=== PATIENT | female | born 1980 | race Caucasian/White ===

== ENCOUNTER 2017-11-27 11:42 | Inpatient (IN) ==
[2017-11-27] MEDS ORDERED: MAGNESIUM SULF RIDER 100 ML IV ONE ×2 (12:50→13:15)
[2017-11-27] MEDS: LACTATED RINGERS 1,000 ML IV SCH (13:05)
[2017-11-27] MEDS ORDERED: AMPICILLIN/SULBACTAM 1,500 MG VIAL IM SCH (13:30)
[2017-11-27 13:43] LABS: Basophils % 0.3 % (0.0-0.8); Eosinophils # 0.7 10*3/uL (0.0-0.87); Eosinophils % 4.9 % (0.00-10.9); Hematocrit 27.4 VOL% (35.7-47.0); Hemoglobin 9.5 GM/DL (12.0-16.0); Immature Granulocytes % 1.5 %; Immature Granulocytes Absolute 0.23 #; Lymphocytes # 2.4 10*3/uL (1.4-4.0); Lymphocytes % 15.9 % (21.3-54.2); Mean Corpuscular HGB Conc 34.7 GM/DL (32-36); Mean Corpuscular Hemoglobin 30 PG (27-34); Mean Corpuscular Volume 85.6 FL (87-102); Mean Platelet Volume 10.3 FL (9.6-12.0); Monocytes # 0.5 10*3/uL (0.11-0.8); Monocytes % 3.2 % (1.7-12.7); Neutrophils # 11.2 10*3/uL (1.4-7.4); Neutrophils % 74.2 % (38.7-73.9); Platelet Count 358 T/CUMM (130-400); Red Cell Distribution Width 14.4 % (9.3-17.3); White Blood Count 15.1 T/CUMM (4-12)
[2017-11-27] MEDS: MAGNESIUM SULF DRIP 40 GM/1,000 ML ML IV SCH (13:44)
[2017-11-27] MEDS: AMPICILLIN/SULBACTAM 1,500 MG in SODIUM CHLORIDE 0.9% 100 ML IV SCH ×3 (14:30→23:40)
[2017-11-27] MEDS ORDERED: SODIUM CHLORIDE 0.9% 100 ML IV ONE (14:35)
[2017-11-27] MEDS: BETAMETH SODIUM PHOS/ACETATE 30 MG/5 ML VIAL IM SCH (15:22)
[2017-11-27] MEDS: ALUMINUM/MAGNES/SIMETH MAX STR 30 ML UDCUP PO PRN (19:50)
[2017-11-27] MEDS: AMOXICILLIN/CLAV 875 MG TABLET PO SCH (22:30)
[2017-11-28] MEDS: LACTATED RINGERS 1,000 ML IV SCH ×3 (00:18→13:30)
[2017-11-28 02:01] LABS: Basophils % 0.2 % (0.0-0.8); Eosinophils % 0.2 % (0.00-10.9); Hematocrit 27.1 VOL% (35.7-47.0); Immature Granulocytes % 1.8 %; Immature Granulocytes Absolute 0.28 #; Lymphocytes # 2.2 10*3/uL (1.4-4.0); Lymphocytes % 14.2 % (21.3-54.2); Mean Corpuscular HGB Conc 33.2 GM/DL (32-36); Mean Corpuscular Hemoglobin 29 PG (27-34); Mean Platelet Volume 10.3 FL (9.6-12.0); Monocytes # 0.3 10*3/uL (0.11-0.8); Neutrophils # 12.4 10*3/uL (1.4-7.4); Neutrophils % 81.6 % (38.7-73.9); Platelet Count 332 T/CUMM (130-400); Red Blood Count 3.08 MC/CUMM (3.8-5.5); Red Cell Distribution Width 14.5 % (9.3-17.3); White Blood Count 15.2 T/CUMM (4-12)
[2017-11-28] MEDS: AMPICILLIN/SULBACTAM 1,500 MG in SODIUM CHLORIDE 0.9% 100 ML IV SCH ×3 (02:30→12:40)
[2017-11-28] MEDS: ALUMINUM/MAGNES/SIMETH MAX STR 30 ML UDCUP PO PRN ×3 (03:16→17:10)
[2017-11-28] MEDS: BETAMETH SODIUM PHOS/ACETATE 30 MG/5 ML VIAL IM SCH ×2 (03:33→17:05)
[2017-11-28] MEDS: ONDANSETRON 4 MG TABLET PO SCH ×3 (08:31→23:42)
[2017-11-28] MEDS: MAGNESIUM SULF DRIP 40 GM/1,000 ML ML IV SCH ×2 (08:51→17:06)
[2017-11-28] MEDS: AMOXICILLIN/CLAV 875 MG TABLET PO SCH (10:34)
[2017-11-28] MEDS: NIFEdipine 10 MG CAPSULE PO SCH ×2 (12:30→18:46)
[2017-11-28] MEDS ORDERED: miSOPROStol 200 MCG TABLET ONE (15:58)
[2017-11-28] MEDS ORDERED: LIDOCAINE 1% 50 ML VIAL ONE (15:58)
[2017-11-28] MEDS ORDERED: CARBOPROST TROMETHAMINE 250 MCG/ML AMP IM ONE (15:58)
[2017-11-29] MEDS: NIFEdipine 10 MG CAPSULE PO SCH ×5 (00:04→23:54)
[2017-11-29] MEDS: LACTATED RINGERS 1,000 ML IV SCH (01:58)
[2017-11-29 03:38] LABS: Basophils % 0.1 % (0.0-0.8); Eosinophils % 0.1 % (0.00-10.9); Hematocrit 24.7 VOL% (35.7-47.0); Hemoglobin 8.1 GM/DL (12.0-16.0); Immature Granulocytes % 2.4 %; Lymphocytes # 2.7 10*3/uL (1.4-4.0); Lymphocytes % 16.4 % (21.3-54.2); Mean Corpuscular HGB Conc 32.8 GM/DL (32-36); Mean Corpuscular Hemoglobin 30 PG (27-34); Mean Corpuscular Volume 90.5 FL (87-102); Mean Platelet Volume 10.2 FL (9.6-12.0); Monocytes # 0.9 10*3/uL (0.11-0.8); Monocytes % 5.4 % (1.7-12.7); Neutrophils # 12.4 10*3/uL (1.4-7.4); Neutrophils % 75.6 % (38.7-73.9); Platelet Count 304 T/CUMM (130-400); Red Blood Count 2.73 MC/CUMM (3.8-5.5); Red Cell Distribution Width 14.8 % (9.3-17.3); White Blood Count 16.3 T/CUMM (4-12)
[2017-11-29] MEDS: AMOXICILLIN/CLAV 875 MG TABLET PO SCH ×2 (10:27→22:26)
[2017-11-29] MEDS: ALUMINUM/MAGNES/SIMETH MAX STR 30 ML UDCUP PO PRN (11:53)
[2017-11-30 05:37] LABS: Basophils % 0.2 % (0.0-0.8); Eosinophils # 0.1 10*3/uL (0.0-0.87); Eosinophils % 0.9 % (0.00-10.9); Hematocrit 24.6 VOL% (35.7-47.0); Hemoglobin 8.3 GM/DL (12.0-16.0); Immature Granulocytes % 4.4 %; Immature Granulocytes Absolute 0.59 #; Lymphocytes # 3.6 10*3/uL (1.4-4.0); Lymphocytes % 27.1 % (21.3-54.2); Mean Corpuscular HGB Conc 33.7 GM/DL (32-36); Mean Corpuscular Hemoglobin 30 PG (27-34); Mean Corpuscular Volume 87.5 FL (87-102); Mean Platelet Volume 10.3 FL (9.6-12.0); Monocytes # 0.7 10*3/uL (0.11-0.8); Monocytes % 5.5 % (1.7-12.7); Neutrophils # 8.3 10*3/uL (1.4-7.4); Neutrophils % 61.9 % (38.7-73.9); Platelet Count 319 T/CUMM (130-400); Red Blood Count 2.81 MC/CUMM (3.8-5.5); Red Cell Distribution Width 14.6 % (9.3-17.3); White Blood Count 13.4 T/CUMM (4-12)
[2017-11-30] MEDS: NIFEdipine 10 MG CAPSULE PO SCH ×4 (05:50→23:47)
[2017-11-30 06:13] LABS: Lymphocytes 13 % (20-55); Macrocytosis 1+; Myelocytes 1 %; Platelet Estimate Adequate; Segmented Neutrophils 80 % (50-85); Total Cells Counted 100
[2017-11-30] MEDS: MULTIVITAMIN (PRENATAL) TABLET PO SCH (09:36)
[2017-11-30] MEDS: AMOXICILLIN/CLAV 875 MG TABLET PO SCH ×2 (09:36→23:47)
[2017-11-30] MEDS: ALUMINUM/MAGNES/SIMETH MAX STR 30 ML UDCUP PO PRN (16:50)
[2017-12-01] MEDS: NIFEdipine 10 MG CAPSULE PO SCH ×4 (06:06→23:48)
[2017-12-01] MEDS: MULTIVITAMIN (PRENATAL) TABLET PO SCH (10:07)
[2017-12-01] MEDS: AMOXICILLIN/CLAV 875 MG TABLET PO SCH ×2 (10:07→21:56)
[2017-12-01] MEDS: DOCUSATE SODIUM 100 MG CAPSULE PO SCH (20:54)
[2017-12-02] MEDS: NIFEdipine 10 MG CAPSULE PO SCH ×2 (06:01→12:06)
[2017-12-02 08:01] LABS: Basophils % 0.2 % (0.0-0.8); Eosinophils # 0.1 10*3/uL (0.0-0.87); Eosinophils % 0.7 % (0.00-10.9); Hematocrit 27.2 VOL% (35.7-47.0); Hemoglobin 9.5 GM/DL (12.0-16.0); Immature Granulocytes % 2.4 %; Immature Granulocytes Absolute 0.42 #; Lymphocytes # 2.9 10*3/uL (1.4-4.0); Lymphocytes % 16.7 % (21.3-54.2); Mean Corpuscular HGB Conc 34.9 GM/DL (32-36); Mean Corpuscular Hemoglobin 30 PG (27-34); Mean Corpuscular Volume 85.8 FL (87-102); Mean Platelet Volume 10.6 FL (9.6-12.0); Monocytes # 0.7 10*3/uL (0.11-0.8); Monocytes % 4.1 % (1.7-12.7); NRBC # 0.02 10*3/uL; Neutrophils # 13.3 10*3/uL (1.4-7.4); Neutrophils % 75.9 % (38.7-73.9); Platelet Count 373 T/CUMM (130-400); Red Blood Count 3.17 MC/CUMM (3.8-5.5); Red Cell Distribution Width 14.4 % (9.3-17.3); White Blood Count 17.5 T/CUMM (4-12)
[2017-12-02] MEDS: AMOXICILLIN/CLAV 875 MG TABLET PO SCH (09:59)
[2017-12-02] MEDS: DOCUSATE SODIUM 100 MG CAPSULE PO SCH (10:00)
[2017-12-02] MEDS: MULTIVITAMIN (PRENATAL) TABLET PO SCH (10:00)
[2017-12-02] MEDS ORDERED: AMPICILLIN INJ 2,000 MG in SODIUM CHLORIDE 0.9% 100 ML IV SCH (14:30)
[2017-12-02] MEDS ORDERED: ONDANSETRON 4 MG/2 ML VIAL IV ONE (14:30)
[2017-12-02] MEDS ORDERED: fentaNYL 2 MCG/ROPIV 0.2% EPID 150 ML EPIDURAL SCH (14:30)
[2017-12-02] MEDS ORDERED: diphenhydrAMINE 50 MG/1 ML VIAL IV PRN (14:30)
[2017-12-02] MEDS ORDERED: FAMOTIDINE 20 MG/2 ML VIAL IV ONE (14:30)
[2017-12-02] MEDS ORDERED: LACTATED RINGERS 500 ML IV ONE (14:30)
[2017-12-02] MEDS ORDERED: ePHEDrine 50 MG/ML AMP IV PRN (14:30)
[2017-12-02] MEDS ORDERED: OXYTOCIN/LR 20 UNIT/1,000 ML BAG IV SCH (14:30)
[2017-12-02] MEDS ORDERED: LACTATED RINGERS 1,000 ML IV ONE (14:30)
[2017-12-02] MEDS ORDERED: PROMETHAZINE 25 MG/1 ML VIAL IM ONE (14:30)
[2017-12-02] MEDS ORDERED: hydrOXYzine HCL 25 MG/1 ML VIAL IM PRN (14:30)
[2017-12-02] MEDS ORDERED: CITRIC ACID/SODIUM CITRATE 30 ML UDCUP PO ONE (14:30)
[2017-12-02] MEDS ORDERED: LACTATED RINGERS 1,000 ML IV SCH (14:30)
[2017-12-02 17:40] LABS: Apearance,Urine CLEAR (Clear); Bacteria,Urine Occasional /HPF (Few); Bilirubin,Urine Negative (Negative); Blood, Urine Negative (Negative); Glucose,Urine (UA) Negative (Negative); Ketones,Urine Negative (Negative); Mucus,Urine Occasional /LPF (Occasional); Nitrite,Urine Negative (Negative); Protein,Urine Negative; RBC,Urine 1 /HPF (0-4); Squamous Epithelial Cell,Urine Occasional /HPF (0-10); Urine Color Yellow (Yellow); Urine Specific Gravity 1.008 (1.001-1.035); Urine Urobilinogen < 2.0 EU/DL (0.2-1.0); WBC,Urine 2 /HPF (0-6)
[2017-12-02] MEDS ORDERED: MEASLES/MUMPS/RUBELLA VACCINE 0.5 ML VIAL SUBCUT ONE (21:07)
[2017-12-02] MEDS ORDERED: ACETAMINOPHEN 325 MG TABLET PO PRN (21:07)
[2017-12-02] MEDS ORDERED: ONDANSETRON 4 MG/2 ML VIAL IV PRN (21:07)
[2017-12-02] MEDS ORDERED: DIPH/TET/ACEL PERT BOOSTER VACCINE 0.5 ML VIAL IM ONE (21:07)
[2017-12-02] MEDS ORDERED: LANOLIN 50% CREAM 0.3 OZ TUBE TOP PRN (21:07)
[2017-12-02] MEDS ORDERED: oxyCODONE/ACETAMINOPHEN 5-325 MG TABLET PO PRN ×2 (21:07)
[2017-12-02] MEDS ORDERED: OXYTOCIN/LR 20 UNIT/1,000 ML BAG IV ONE (21:07)
[2017-12-02] MEDS ORDERED: RHO(D) IMMUNE GLOBULIN 300 MCG SYRINGE IM ONE (21:07)
[2017-12-02] MEDS ORDERED: HYDROCORTISONE 2.5% RECTAL CREAM 30 GM TUBE TOP PRN (21:07)
[2017-12-02] MEDS ORDERED: BENZOCAINE 20%/MENTHOL 0.5% SPRAY 56 GM CAN TOP PRN (21:07)
[2017-12-02] MEDS ORDERED: WITCH HAZEL PADS 100/JAR TOP PRN (21:07)
[2017-12-02] MEDS ORDERED: IBUPROFEN 800 MG TABLET PO PRN (21:07)
[2017-12-02] MEDS ORDERED: BISACODYL 10 MG SUPP RECTAL PRN (21:07)
[2017-12-03 04:14] LABS: Basophils # 0.1 10*3/uL (0.0-0.2); Basophils % 0.2 % (0.0-0.8); Eosinophils # 0.1 10*3/uL (0.0-0.87); Eosinophils % 0.4 % (0.00-10.9); Hematocrit 23.7 VOL% (35.7-47.0); Hemoglobin 7.8 GM/DL (12.0-16.0); Immature Granulocytes % 1.6 %; Immature Granulocytes Absolute 0.36 #; Lymphocytes % 13.4 % (21.3-54.2); Mean Corpuscular HGB Conc 32.9 GM/DL (32-36); Mean Corpuscular Hemoglobin 29 PG (27-34); Mean Corpuscular Volume 89.4 FL (87-102); Monocytes # 0.8 10*3/uL (0.11-0.8); Monocytes % 3.7 % (1.7-12.7); Neutrophils # 18.1 10*3/uL (1.4-7.4); Neutrophils % 80.7 % (38.7-73.9); Platelet Count 327 T/CUMM (130-400); Red Blood Count 2.65 MC/CUMM (3.8-5.5); Red Cell Distribution Width 14.4 % (9.3-17.3); White Blood Count 22.4 T/CUMM (4-12)
[2017-12-03] MEDS ORDERED: ACETAMINOPHEN/CODEINE 300-30 MG TABLET PO PRN (04:33)
[2017-12-03 05:00] LABS: Eosinophils 1 % (0-10); Lymphocytes 8 % (20-55); Segmented Neutrophils 89 % (50-85); Total Cells Counted 100
[2017-12-03 05:01] LABS: Giant Platelets Few; Hypochromasia 1+; Platelet Estimate Adequate
[2017-12-03] MEDS: MULTIVITAMIN (PRENATAL) TABLET PO SCH (08:10)
[2017-12-03] MEDS: DOCUSATE SODIUM 100 MG CAPSULE PO SCH (08:10)
[2017-12-03] MEDS ORDERED: DOCUSATE SODIUM 100 MG CAPSULE PO SCH (09:00)
[2017-12-04] MEDS: DOCUSATE SODIUM 100 MG CAPSULE PO SCH (08:17)
[2017-12-04] MEDS: MULTIVITAMIN (PRENATAL) TABLET PO SCH (08:17)
[2017-12-04 08:56] VITALS: BP 123/76
== END 2017-12-04 12:00 | disposition home or self-care (01) | DRG 560 ==
LOC: N.LDOUT 11:42 → N.LD 11:43 → UNDODEPREF 11-30 13:54 → N.OB 11-30 14:42 → N.LD 12-02 13:43 → N.OB 12-02 22:45
PROVIDERS: ADMIT Obstetrics & Gynecology; ATTEND Obstetrics & Gynecology

== ENCOUNTER 2021-10-02 10:42 | Observation (INO) ==
[2021-10-02] MEDS ORDERED: ASPIRIN 325 MG TABLET PO STA (11:43)
[2021-10-02 11:52] LABS: Basophils # 0.1 10*3/uL (0.0-0.2); Basophils % 0.4 % (0.0-0.8); Eosinophils # 0.1 10*3/uL (0.0-0.87); Eosinophils % 0.8 % (0.00-10.9); Hematocrit 36.2 VOL% (35.7-47.0); Hemoglobin 11.9 GM/DL (12.0-16.0); Immature Granulocytes % 0.6 %; Immature Granulocytes Absolute 0.09 #; Lymphocytes # 2.1 10*3/uL (1.4-4.0); Lymphocytes % 14.6 % (21.3-54.2); Mean Corpuscular HGB Conc 32.9 GM/DL (32-36); Mean Corpuscular Volume 82.1 FL (87-102); Monocytes % 4.4 % (1.7-12.7); Neutrophils % 79.2 % (38.7-73.9); Platelet Count 445 T/CUMM (130-400); Red Blood Count 4.41 MC/CUMM (3.8-5.5); Red Cell Distribution Width 14.6 % (9.3-17.3); White Blood Count 14.3 T/CUMM (4-12)
[2021-10-02] MEDS ORDERED: ONDANSETRON 4 MG/2 ML VIAL IV ONE (12:00)
[2021-10-02] MEDS ORDERED: KETOROLAC 30 MG/1 ML VIAL IV STA (12:02)
[2021-10-02 12:08] LABS: Albumin 3.7 G/DL (3.4-5.0); Bilirubin,Total 0.4 MG/DL (0.20-1.00); Calcium 8.3 MG/DL (8.5-10.1); Osmolality,Calculated 268.1 MOS/KG (273-304); Potassium 3.2 MMOL/L (3.5-5.1)
[2021-10-02] MEDS ORDERED: POTASSIUM CHLORIDE 20 MEQ TABLET PO ONE (13:47)
[2021-10-02] MEDS ORDERED: DEXTROSE 50% 25 GM/50 ML VIAL IV PRN (14:43)
[2021-10-02] MEDS ORDERED: NITROGLYCERIN SL 0.4 MG TABLET SL PRN (14:43)
[2021-10-02] MEDS ORDERED: ACETAMINOPHEN 325 MG TABLET PO PRN (14:43)
[2021-10-02] MEDS ORDERED: hydrOXYzine HCL 25 MG TABLET PO PRN (14:43)
[2021-10-02] MEDS ORDERED: GLUCAGON 1 MG VIAL IM PRN (14:43)
[2021-10-02] MEDS ORDERED: fentaNYL 25 MCG/HR PATCH TRANSDERM SCH (15:00)
[2021-10-02 16:51] LABS: Risk Ratio 11.04; Thyroid Stimulating Hormone 0.569 uIU/ml (0.358-3.74)
[2021-10-02] MEDS: LACTATED RINGERS 1,000 ML IV SCH (17:02)
[2021-10-02] MEDS: PREGABALIN 100 MG CAPSULE PO SCH ×2 (17:02→21:58)
[2021-10-02] MEDS: ENOXAPARIN 40 MG/0.4 ML SYRINGE SUBCUT SCH (17:02)
[2021-10-02] MEDS: METOPROLOL TARTRATE 25 MG TABLET PO SCH (21:58)
[2021-10-03] MEDS: LACTATED RINGERS 1,000 ML IV SCH ×3 (01:10→15:18)
[2021-10-03 04:27] LABS: Basophils # 0.1 10*3/uL (0.0-0.2); Basophils % 0.7 % (0.0-0.8); Eosinophils # 0.2 10*3/uL (0.0-0.87); Eosinophils % 1.6 % (0.00-10.9); Hematocrit 32.2 VOL% (35.7-47.0); Hemoglobin 10.6 GM/DL (12.0-16.0); Immature Granulocytes % 0.7 %; Immature Granulocytes Absolute 0.07 #; Lymphocytes % 19.3 % (21.3-54.2); Mean Corpuscular HGB Conc 32.9 GM/DL (32-36); Mean Corpuscular Volume 83.4 FL (87-102); Mean Platelet Volume 10.1 FL (9.6-12.0); Monocytes % 5.2 % (1.7-12.7); Neutrophils % 72.5 % (38.7-73.9); Platelet Count 402 T/CUMM (130-400); Red Blood Count 3.86 MC/CUMM (3.8-5.5); Red Cell Distribution Width 14.6 % (9.3-17.3); White Blood Count 10.4 T/CUMM (4-12)
[2021-10-03 04:52] LABS: Calcium 7.7 MG/DL (8.5-10.1); Potassium 3.3 MMOL/L (3.5-5.1)
[2021-10-03] MEDS: ONDANSETRON 4 MG/2 ML VIAL IV PRN ×2 (07:22→12:06)
[2021-10-03] MEDS ORDERED: POTASSIUM CHLORIDE 20 MEQ TABLET PO ONE ×2 (07:28→16:09)
[2021-10-03] MEDS ORDERED: FAMOTIDINE 20 MG TABLET PO SCH (09:00)
[2021-10-03] MEDS ORDERED: ASPIRIN CHEW 81 MG TABLET PO SCH (09:00)
[2021-10-03] MEDS: METOPROLOL TARTRATE 25 MG TABLET PO SCH (09:24)
[2021-10-03] MEDS: PREGABALIN 100 MG CAPSULE PO SCH ×2 (09:24→15:18)
[2021-10-03] MEDS ORDERED: REGADENOSON 0.4 MG/5 ML SYRINGE IV ONE (13:57)
[2021-10-03] MEDS: ENOXAPARIN 40 MG/0.4 ML SYRINGE SUBCUT SCH ×2 (15:18→15:29)
[2021-10-03 17:10] VITALS: BP 104/60
== END 2021-10-03 17:30 | disposition home or self-care (01) ==
LOC: N.ED 10:42 → N.EDINP 10:42 → N.TELES 14:24
PROVIDERS: ADMIT Internal Medicine; ATTEND Internal Medicine

== ENCOUNTER 2021-10-09 11:34 | Inpatient (IN) ==
[2021-10-09] MEDS ORDERED: PROMETHAZINE INJ 25 MG in SODIUM CHLORIDE 0.9% 50 ML IV STA (13:28)
[2021-10-09] MEDS ORDERED: SODIUM CHLORIDE 0.9% 1,000 ML IV STA (13:28)
[2021-10-09] MEDS ORDERED: PROMETHAZINE 25 MG/1 ML VIAL ONE (14:08)
[2021-10-09 14:15] LABS: Basophils # 0.1 10*3/uL (0.0-0.2); Basophils % 0.5 % (0.0-0.8); Eosinophils % 0.2 % (0.00-10.9); Hematocrit 40.3 VOL% (35.7-47.0); Hemoglobin 13.5 GM/DL (12.0-16.0); Immature Granulocytes % 1.3 %; Immature Granulocytes Absolute 0.24 #; Lymphocytes # 2.1 10*3/uL (1.4-4.0); Lymphocytes % 11.1 % (21.3-54.2); Mean Corpuscular HGB Conc 33.5 GM/DL (32-36); Mean Corpuscular Volume 81.6 FL (87-102); Mean Platelet Volume 10.2 FL (9.6-12.0); Monocytes % 5.1 % (1.7-12.7); Neutrophils % 81.8 % (38.7-73.9); Platelet Count 514 T/CUMM (130-400); Red Blood Count 4.94 MC/CUMM (3.8-5.5); Red Cell Distribution Width 14.6 % (9.3-17.3); White Blood Count 18.8 T/CUMM (4-12)
[2021-10-09 14:33] LABS: Alanine Aminotransferase 29 U/L (13-56); Albumin 3.8 G/DL (3.4-5.0); Alkaline Phosphatase 127 U/L (45-117); Aspartate Amino Transferase 17 U/L (0-37); Bilirubin,Total < 0.39 MG/DL (0.20-1.00); Blood Urea Nitrogen 16 MG/DL (7-18); Carbon Dioxide 21 MMOL/L (21-32); Estimated Glom Filtration Rate 123 ML/MIN; Glucose 112 MG/DL (74-106); Osmolality,Calculated 269.2 MOS/KG (273-304); Sodium 134 MMOL/L (136-145); Total Protein 8.4 G/DL (6.4-8.2)
[2021-10-09 15:59] LABS: Bilirubin,Urine Negative (Negative); Blood, Urine Negative (Negative); Glucose,Urine (UA) Negative (Negative); Ketones,Urine 80 mg/dL (Negative); Mucus,Urine Occasional /LPF (Occasional); Nitrite,Urine Negative (Negative); Protein,Urine 30 MG/DL; RBC,Urine 8 /HPF (0-4); Squamous Epithelial Cell,Urine Occasional /HPF (0-10); Urine Appearance CLEAR (Clear); Urine Color Yellow (Yellow); Urine Urobilinogen < 2.0 EU/DL (0.2-1.0)
[2021-10-09 16:01] LABS: Urine Specific Gravity 1.001 (1.001-1.035)
[2021-10-09] MEDS ORDERED: DEXTROSE 50% 25 GM/50 ML VIAL IV PRN (16:31)
[2021-10-09] MEDS ORDERED: ALBUTEROL/IPRATROPIUM 3 ML NEB RESP TX PRN (16:31)
[2021-10-09] MEDS ORDERED: ONDANSETRON 4 MG/2 ML VIAL IV PRN ×2 (16:31→19:35)
[2021-10-09] MEDS ORDERED: hydrALAZINE 20 MG/1 ML VIAL IV PRN (16:31)
[2021-10-09] MEDS ORDERED: ACETAMINOPHEN 325 MG TABLET PO PRN (16:31)
[2021-10-09] MEDS ORDERED: PROMETHAZINE 25 MG/1 ML VIAL IM PRN (16:31)
[2021-10-09] MEDS ORDERED: GLUCAGON 1 MG VIAL IM PRN (16:31)
[2021-10-09] MEDS ORDERED: POTASSIUM CHLORIDE RIDER 10 MEQ/100 ML PREMIX IV PRN (16:37)
[2021-10-09] MEDS: POTASSIUM CHLORIDE INJ 20 MEQ in SODIUM CHLORIDE 0.9% 1,000 ML IV SCH (17:24)
[2021-10-09] MEDS ORDERED: TEMAZEPAM 7.5 MG CAPSULE PO PRN (19:35)
[2021-10-09] MEDS ORDERED: MYLANTA/LIDO VISC 2:1 300 ML BOTTLE SWISH/SWAL PRN (19:35)
[2021-10-09] MEDS ORDERED: MAGNESIUM HYDROXIDE SUSP 30 ML UDCUP PO PRN (19:35)
[2021-10-09] MEDS ORDERED: LOPERAMIDE 2 MG CAPSULE PO PRN ×2 (19:35)
[2021-10-09] MEDS ORDERED: chlorproMAZINE INJ 25 MG in SODIUM CHLORIDE 0.9% 100 ML IV PRN (19:35)
[2021-10-09] MEDS ORDERED: diphenhydrAMINE CAP 25 MG CAPSULE PO PRN (19:35)
[2021-10-09] MEDS ORDERED: ALUMINUM/MAGNES/SIMETH MAX STR 30 ML UDCUP PO PRN (19:35)
[2021-10-09] MEDS ORDERED: LACTULOSE 20 GM/30 ML UDCUP PO PRN (19:35)
[2021-10-09] MEDS ORDERED: MYLANTA/LIDO VISC 2:1 300 ML BOTTLE SWISH/SPIT PRN (19:35)
[2021-10-09] MEDS ORDERED: traMADol 50 MG TABLET PO PRN (19:35)
[2021-10-09] MEDS ORDERED: ALPRAZolam 0.25 MG TABLET PO PRN (19:35)
[2021-10-09] MEDS ORDERED: guaiFENesin 200 MG/10 ML UDCUP PO PRN (19:35)
[2021-10-09] MEDS ORDERED: chlorproMAZINE INJ 50 MG in SODIUM CHLORIDE 0.9% 100 ML IV PRN (19:35)
[2021-10-09] MEDS: ENOXAPARIN 40 MG/0.4 ML SYRINGE SUBCUT SCH (20:26)
[2021-10-09] MEDS: PROMETHAZINE INJ 25 MG in SODIUM CHLORIDE 0.9% 50 ML IV PRN (20:53)
[2021-10-10] MEDS: PROMETHAZINE INJ 25 MG in SODIUM CHLORIDE 0.9% 50 ML IV PRN (04:20)
[2021-10-10 05:30] LABS: Basophils # 0.1 10*3/uL (0.0-0.2); Basophils % 0.6 % (0.0-0.8); Eosinophils # 0.1 10*3/uL (0.0-0.87); Hematocrit 34.4 VOL% (35.7-47.0); Hemoglobin 11.3 GM/DL (12.0-16.0); Immature Granulocytes % 1.4 %; Immature Granulocytes Absolute 0.18 #; Lymphocytes # 2.6 10*3/uL (1.4-4.0); Lymphocytes % 19.5 % (21.3-54.2); Mean Corpuscular HGB Conc 32.8 GM/DL (32-36); Mean Corpuscular Volume 83.1 FL (87-102); Mean Platelet Volume 10.6 FL (9.6-12.0); Monocytes % 6.7 % (1.7-12.7); Neutrophils % 70.8 % (38.7-73.9); Platelet Count 456 T/CUMM (130-400); Red Blood Count 4.14 MC/CUMM (3.8-5.5); Red Cell Distribution Width 14.6 % (9.3-17.3); White Blood Count 13.1 T/CUMM (4-12)
[2021-10-10 05:41] LABS: Albumin 3.1 G/DL (3.4-5.0); Bilirubin,Total 0.4 MG/DL (0.20-1.00); Calcium 7.7 MG/DL (8.5-10.1); Osmolality,Calculated 278.4 MOS/KG (273-304); Total Protein 6.8 G/DL (6.4-8.2)
[2021-10-10] MEDS: POTASSIUM CHLORIDE INJ 20 MEQ in SODIUM CHLORIDE 0.9% 1,000 ML IV SCH ×2 (07:09→21:56)
[2021-10-10] MEDS: PANTOPRAZOLE 40 MG VIAL IV SCH (08:43)
[2021-10-10] MEDS: DEXAMETHASONE 4 MG/1 ML VIAL IV SCH ×2 (13:04→21:33)
[2021-10-10] MEDS: ENOXAPARIN 40 MG/0.4 ML SYRINGE SUBCUT SCH (21:28)
[2021-10-11 06:41] LABS: Basophils % 0.3 % (0.0-0.8); Hematocrit 30.5 VOL% (35.7-47.0); Hemoglobin 9.7 GM/DL (12.0-16.0); Immature Granulocytes % 0.9 %; Lymphocytes # 1.6 10*3/uL (1.4-4.0); Lymphocytes % 14.1 % (21.3-54.2); Mean Corpuscular HGB Conc 31.8 GM/DL (32-36); Mean Platelet Volume 10.3 FL (9.6-12.0); Monocytes % 4.7 % (1.7-12.7); Platelet Count 394 T/CUMM (130-400); Red Blood Count 3.63 MC/CUMM (3.8-5.5); Red Cell Distribution Width 14.6 % (9.3-17.3); White Blood Count 11.2 T/CUMM (4-12)
[2021-10-11 07:07] LABS: Albumin 2.8 G/DL (3.4-5.0); Bilirubin,Total 0.6 MG/DL (0.20-1.00); Calcium 7.4 MG/DL (8.5-10.1); Osmolality,Calculated 280.1 MOS/KG (273-304); Potassium 3.6 MMOL/L (3.5-5.1)
[2021-10-11] MEDS: PANTOPRAZOLE 40 MG VIAL IV SCH (09:37)
[2021-10-11] MEDS: DEXAMETHASONE 4 MG/1 ML VIAL IV SCH (09:38)
[2021-10-11] MEDS ORDERED: HEPARIN LOCK FLUSH 500 UNIT/5 ML SYRINGE IV ONE (11:49)
[2021-10-11 12:35] VITALS: BP 101/51
[2021-10-11] MEDS: POTASSIUM CHLORIDE INJ 20 MEQ in SODIUM CHLORIDE 0.9% 1,000 ML IV SCH ×2 (12:49→12:53)
== END 2021-10-11 12:52 | disposition home or self-care (01) | DRG 249 ==
LOC: N.ED 11:34 → N.2W 16:31 → SUATTDRO 16:31 → N.2W 17:44
PROVIDERS: ADMIT Internal Medicine; ATTEND Internal Medicine